=== PATIENT | female | born 1960 | race Caucasian/White ===

== ENCOUNTER 2022-02-25 09:07 | Emergency (ER) | payer BC ==
[2022-02-25 10:32] LABS: TROPONIN I HIGH SENSITIVITY 8.3 pg/mL (<=60.3)
[2022-02-25 11:02] LABS: CORONAVIRUS COVID-19 NAA NEGATIVE (NEGATIVE)
== END 2022-02-25 10:53 | disposition home or self-care (01) ==
LOC: JP.ED 09:07
DX: R07.89 Other chest pain (principal); R20.2 Paresthesia of skin; E78.00 Pure hypercholesterolemia, unspecified; Z79.899 Other long term (current) drug therapy; Z87.891 Personal history of nicotine dependence; Z20.822 Contact with and (suspected) exposure to COVID-19
CPT/HCPCS: 0241U; 36415; 71046; 80048; 84484; 85025; 93005; 99285; 93010; 99282